=== PATIENT | female | born 1945 | race Caucasian/White ===

== ENCOUNTER → 2018-02-05 07:45 | Outpatient (CLI) | payer MEDICARE, SELFPAY ==
--- NOTE | 2018-02-05 07:51 | AAVD_ITS ---
Reason For Study: Aortobifemoral bypass graft Aorta Measurements Aorta Doppler Measurements Proximal aorta measures1.8 x 1.8cm. in cross- Peak systolic flow velocities within the proximal sectional axis. aorta measure 72.0 cm/sec. Proximal aorta measures1.8cm. in longitudinal Peak systolic flow velocities within the mid axis. aorta measure 124.0 cm/sec. Mid aorta measures1.6 x 1.6cm. in cross-sectionalPeak systolic flow velocities within the distal axis. aorta measure 66.6 cm/sec. Mid aorta measures1.8cm. in longitudinal axis. Distal aorta measures1.5 x 1.6cm. in cross- sectional axis. Distal aorta measures1.5cm. in longitudinal axis. Left Iliac Artery Left iliac artery measures .72 cm. in the longitudinal axis. Left iliac artery measures .80 x .94 cm. in the cross-sectional axis. Peak systolic velocity in the left iliac artery measures 167.0 cm/sec. Iliac mid - 88.2 cm/sec Iliac dist - 112.0 cm/sec DELINQUENT TAX COLLECTOR ASSISTANT - 171.0 cm/sec SFA prox - 84.5 cm/sec. Right Iliac Artery Right iliac artery measures .93 cm. in the longitudinal axis. Right iliac artery measures .96 x .98 cm. in the cross-sectional axis. Peak systolic velocity in the right iliac artery measures 142.0 cm/sec. Iliac Mid - 117.0 cm/sec Iliac Dist 113.0 cm/sec DELINQUENT TAX COLLECTOR ASSISTANT - 130.0 cm/sec SFA prox - 128.0 cm/sec. Procedure Aorta IVC Iliac vasculature or bypass grafts 41533. Exam performed in department. Interpretation Summary 1. Patent AFBbilaterally with no stenosis. Ordering Physician: Boris Franklin Referring Physician: Kaylan Minor Performed By: Beryl Karimi RVT
--- NOTE | 2018-02-17 11:52 | LEAS ---
Arterial Study - Arterial Study Arterial Study: Date of scan: [address] Lara History: Patient has previous aortobifemoral bypass graft 2014. Interpretation: Right lower extremity pulsatile flow noted at the ankle duplex shows triphasic flow both vessels. With an MAHIN 1.01 and the PT and 0.83 of the DP. Next Left lower extremity pulsatile flow noted at the ankle biphasic flow the PT with an MAHIN 0.79 mono phasic the biphasic of the DP with an MAHIN 0.62. Next Impression: 1. No evidence of significant arterial occlusive disease with an MAHIN 1.01 on the right and normal flow. 2. Moderate arterial occlusive disease on the left with an MAHIN 0.79
== END ==
DX: I70.213 Atherosclerosis of native arteries of extremities with intermittent claudication, bilateral legs (principal); Z48.812 Encounter for surgical aftercare following surgery on the circulatory system
CPT/HCPCS: 93922; 93978

== ENCOUNTER → 2018-09-23 13:37 | Outpatient (CLI) | payer MEDICARE, SELFPAY ==
[2018-09-23 13:10] VITALS: BMI 22.9
--- NOTE | 2018-09-23 13:45 | RAD_ITS ---
STUDY: X-RAY CHEST REASON FOR EXAM: Female, 72 years old. Chest pain TECHNIQUE: 2 views COMPARISON: None. FINDINGS: There are bronchi with opaque christensen noted centrally. There is no acute pneumonia or failure and no pleural effusions. A calcified granuloma is in the left lower lobe. An [id number] through the left subclavian vein has its tip at the cavoatrial junction. Normal visualized thoracic spine. Normal visualized ribs, clavicles, and shoulders. There is no demonstrated abnormality of the visualized soft tissue structures of the upper abdomen. RAD/Chest PA and Lateral IMPRESSION: Chronic bronchitis. No acute findings in the lungs. Electronically Signed: Rodolfo Solorzano MD at 4:25 EST Tel , Service support ,
== END ==
PROVIDERS: Referring Provider Surgery; Visit Provider Surgery
DX: Z45.2 Encounter for adjustment and management of vascular access device (principal)
CPT/HCPCS: 71046

== ENCOUNTER → 2018-12-30 12:57 | Outpatient (CLI) | payer MEDICARE, SELFPAY ==
[2018-10-04 13:32] VITALS: BMI 22.9
--- NOTE | 2018-12-30 12:59 | CDU_ITS ---
Reason For Study: Ocular ischemic syndrome Rt. Velocities/BP Lt. Velocities/BP Prox CCA 143.3/27 cm/sec. Prox ICA 62.3/15 cm/sec. Mid CCA 123.5/29.2 cm/sec. Mid ICA 130.2/24.1 cm/sec. Dist CCA 264/75.7 cm/sec. Dist ICA 70.7/26.7 cm/sec. Prox ICA 187.9/58.4 cm/sec. Lt. Vert. 86.7/14.2 cm/sec. Mid ICA 250.6/74.1 cm/sec. Dist ICA 252.5/85.3 cm/sec. Rt. ICA/CCA = 1.76. Prox ECA 175.5/33.3 cm/sec. Rt. Vert. 161.4/29.3 cm/sec. Right Extracranial There is heterogeneous, irregular atherosclerotic plaque noted in the right common carotid artery. There is homogeneous, irregular atherosclerotic plaque noted in the right internal carotid artery. There is homogeneous, irregular atherosclerotic plaque noted in the right external carotid artery. Antegrade flow is noted in the right vertebral artery. Left Extracranial There is heterogeneous, irregular atherosclerotic plaque noted in the left common carotid artery. 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 There is heterogeneous, irregular atherosclerotic plaque noted in the left internal carotid artery. There is heterogeneous, irregular atherosclerotic plaque noted in the left external carotid artery. Lt ECA flow is retrograde. Antegrade flow is noted in the left vertebral artery. Procedure Carotid Duplex [id number]. Exam performed in department. Interpretation Summary A high degree of stenosis is noted in the distal right common carotid artery, estimated to be over 60% by mi-scale and color-flow imaging. Severe stenosis (>70%) is noted in the right internal carotid artery. 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 Retrograde flow is noted in the left external carotid artery, which appears to be providing antegrade flow to the left internal carotid artery. The degree of stenosis in the left internal carotid artery appears to be <50%. Antegrade flow is noted in the vertebral arteries bilaterally. Ordering Physician: Jh Delarosa Referring Physician: Jh Delarosa Performed By: Liz Lloyd RVT
== END ==
PROVIDERS: Referring Provider Ophthalmology; Visit Provider Ophthalmology
DX: H35.82 Retinal ischemia (principal)
CPT/HCPCS: 93880